=== PATIENT | male | born 1950 | race Caucasian/White ===

== ENCOUNTER 2018-02-15 10:07 | Emergency (ER) | payer OTHER ==
[2018-02-15] MEDS ORDERED: Sodium Chloride 0.9% 10 ML Syringe FLUSH PRN (10:17)
[2018-02-15] MEDS ORDERED: STERILE IV ONE (10:30)
[2018-02-15] MEDS ORDERED: WATER FOR INJECTION IV ONE (10:30)
[2018-02-15] MEDS ORDERED: ALTEPLASE IV ONE (10:30)
--- NOTE | 2018-02-15 10:31 | EDM.PDOC ---
ED HPI GENERAL MEDICAL PROBLEM - General Chief Complaint: Neuro Symptoms/Deficits Stated Complaint: STROKE Time Seen by Provider: 02/15/18 10:16 Source of Information: Reports: Patient, Family History Limitations: Reports: No Limitations - History of Present Illness INITIAL COMMENTS - FREE TEXT/NARRATIVE: The patient presents with slurred speech and balance issues. His last time known well was 9am. He has no headache, chest pain, shortness of breath, abdominal pain, nausea or vomiting. He does have slurred speech and he is off balance when he walks. He has some mild weakness to his face and left side. He has no history of stroke or CVA. He has no recent surgeries. He has a history of hypertension, COPD, seizures, right foot drop from an injury in [place], and neck surgery. He says his seizures started about 7 to 8 years ago. He is unsure of the cause. He will get a generalized tonic clonic seizure and they are under control. Onset: Sudden Duration: Hour(s): (9am) Severity: Severe Improves with: Reports: None Worsens with: Reports: None Context: Reports: Activity (He was at home) - Related Data Allergies Allergy/AdvReac Type Severity Reaction Status Date / Time No Known Allergies Allergy Verified 02/15/18 10:21 ED ROS GENERAL - Review of Systems Review Of Systems: See Below Constitutional: Reports: No Symptoms HEENT: Reports: No Symptoms Respiratory: Reports: No Symptoms Cardiovascular: Reports: No Symptoms Endocrine: Reports: No Symptoms GI/Abdominal: Reports: No Symptoms : Reports: No Symptoms Musculoskeletal: Reports: No Symptoms Skin: Reports: No Symptoms Neurological: Reports: Dizziness, Weakness, Gait Disturbance ED EXAM, NEURO - Physical Exam Exam: See Below Exam Limited By: No Limitations General Appearance: Alert, No Apparent Distress Ears: Normal External Exam Nose: Normal Inspection Head Exam: Atraumatic, Normocephalic Neck: Normal Inspection Respiratory/Chest: No Respiratory Distress, Lungs Clear, Normal Breath Sounds Cardiovascular: Regular Rate, Rhythm, No Edema, No Murmur GI/Abdominal: Soft, Non-Tender, No Organomegaly, No Mass Neurological: Alert, Oriented x 3, Other (Slurred speech, mild abnormal finger to nose on the left, mild facial, arm and leg weakness on the left.) EKG INTERPRETATION EKG Date: 02/15/18 Time: 10:28 Rhythm: NSR Rate (Beats/Min): 74 [place]: Normal P-Wave: Present QRS: Normal ST-T: Normal QT: Normal Course - Vital Signs Last Recorded V/S: Last Vital Signs Temp 97.9 F 02/15/18 10:18 Pulse 79 02/15/18 10:18 Resp 15 02/15/18 10:18 BP 128/69 02/15/18 10:18 Pulse Ox 92 L 02/15/18 10:18 - Orders/Labs/Meds Orders: Active Orders 24 hr Category Date Time Status Cardiac Monitoring [RC] . DIRECTED Care 02/15/18 10:17 Active EKG Documentation Completion [RC] STAT Care 02/15/18 10:18 Active Peripheral IV Care [RC] . DIRECTED Care 02/15/18 10:18 Active Head wo Cont [CT] Routine Exams 02/15/18 Taken COMPREHENSIVE METABOLIC PN,CMP [CHEM] Stat Lab 02/15/18 10:25 Received INR,PT,PROTHROMBIN TIME [COAG] Stat Lab 02/15/18 10:25 Received PTT,PARTIAL THROMBOPLSTIN TIME [COAG] Stat Lab 02/15/18 10:25 Received TROPONIN I [CHEM] Stat Lab 02/15/18 10:25 Received Sodium Chloride 0.9% [Saline Flush] Med 02/15/18 10:17 Active 10 ml FLUSH ASDIRECTED PRN Peripheral IV Insertion Adult [OM.PC] Stat Oth 02/15/18 10:17 Ordered Medication Orders Sodium Chloride (Saline Flush) 10 ml FLUSH ASDIRECTED PRN PRN Reason: Keep Vein Open Last Admin: 02/15/18 10:28 Dose: 10 ml Labs: Laboratory Tests 02/15/18 Range/Units 10:25 WBC 7.45 (4.23-9.07) K/mm3 RBC 4.05 L (4.63-6.08) M/mm3 Hgb 12.9 L (13.7-17.5) gm/L Hct 38.2 L (40.1-51.0) % MCV 94.3 H (79.0-92.2) fl MCH 31.9 (25.7-32.2) pg MCHC 33.8 (32.2-35.5) g/dl RDW Std Deviation 42.6 (35.1-43.9) fL Plt Count 191 (163-337) K/mm3 MPV 10.1 (9.4-12.3) fl Neut % (Auto) 60.5 (34.0-67.9) % Lymph % (Auto) 25.0 (21.8-53.1) % [place] % (Auto) 9.3 (5.3-12.2) % Eos % (Auto) 3.9 (0.8-7.0) Baso % (Auto) 0.8 (0.1-1.2) % Neut # (Auto) 4.51 (1.78-5.38) K/mm3 Lymph # (Auto) 1.86 (1.32-3.57) K/mm3 [place] # (Auto) 0.69 (0.30-0.82) K/mm3 Eos # (Auto) 0.29 (0.04-0.54) K/mm3 Baso # (Auto) 0.06 (0.01-0.08) K/mm3 Meds: Medications Generic Name Dose Route Start Last Admin Trade Name Freq PRN Reason Stop Dose Admin Sodium Chloride 10 ml 02/15/18 10:17 02/15/18 10:28 Saline Flush FLUSH 10 ml ASDIRECTED PRN Administration Keep Vein Open - Re-Assessments/Exams Free Text/Narrative Re-Assessment/Exam: 02/15/18 10:48 A stroke alert was called and the patient was last time known well at 9am. I ordered a CT of his head, EKG, and labs. His blood sugar was 124. The CT shows no acute intracranial problems. He had no contraindications for TPA. I informed the patient and his brother that he was having a blockage kind of stroke and I will be giving TPA. I ordered TPA a bolus was given and a drip. His EKG shows NSR with no acute changes. I talked to [facility] in [place] and talked with the neurologist munitions worker Dr Gerard and he accepted the patient. Departure - Departure Time of Disposition: 10:55 Disposition: DC/Tfer to Acute Hospital 02 Condition: Serious Clinical Impression: Cerebrovascular accident (CVA) Qualifiers: CVA mechanism: unspecified Qualified Code(s): I63.9 - Cerebral infarction, unspecified - Discharge Information Forms: ED Department Discharge - My Orders Last 24 Hours: My Active Orders 02/15/18 Head wo Cont [CT] Routine 02/15/18 10:17 Cardiac Monitoring [RC] . DIRECTED Sodium Chloride 0.9% [Saline Flush] 10 ml FLUSH ASDIRECTED PRN Peripheral IV Insertion Adult [OM.PC] Stat 02/15/18 10:18 EKG Documentation Completion [RC] STAT Peripheral IV Care [RC] . DIRECTED 02/15/18 10:25 COMPREHENSIVE METABOLIC PN,CMP [CHEM] Stat INR,PT,PROTHROMBIN TIME [COAG] Stat PTT,PARTIAL THROMBOPLSTIN TIME [COAG] Stat TROPONIN I [CHEM] Stat - Assessment/Plan Last 24 Hours: My Active Orders 02/15/18 Head wo Cont [CT] Routine 02/15/18 10:17 Cardiac Monitoring [RC] . DIRECTED Sodium Chloride 0.9% [Saline Flush] 10 ml FLUSH ASDIRECTED PRN Peripheral IV Insertion Adult [OM.PC] Stat 02/15/18 10:18 EKG Documentation Completion [RC] STAT Peripheral IV Care [RC] . DIRECTED 02/15/18 10:25 COMPREHENSIVE METABOLIC PN,CMP [CHEM] Stat INR,PT,PROTHROMBIN TIME [COAG] Stat PTT,PARTIAL THROMBOPLSTIN TIME [COAG] Stat TROPONIN I [CHEM] Stat
--- NOTE | 2018-02-15 12:21 | CT ---
Head CT Technique: Multiple axial sections through the brain were obtained. Intravenous contrast was not utilized. Comparison: No previous intracranial imaging. Findings: Ventricles along with basal cisterns and sulci over the convexities are within normal limits for the patient's age. No abnormal parenchymal densities are seen. No evidence of intracranial hemorrhage. No midline shift or mass effect is seen. Atherosclerotic calcification is seen within the left vertebral vessel. Mild areas of mucosal thickening are seen within the frontal , ethmoid and left maxillary sinus. No acute calvarial abnormality is seen. Impression: 1. Paranasal sinus disease which is likely chronic. 2. No acute intracranial abnormality is identified on noncontrast head CT exam. Diagnostic code #2 MTDD
== END 2018-02-15 10:52 ==
LOC: JD.ED 10:07 → MERGE 10:07 → JD.ED 10:52
DX: I63.9 Cerebral infarction, unspecified (principal); I10 Essential (primary) hypertension
CPT/HCPCS: 36415; 70450; 80053; 84484; 85025; 85610; 85730; 93005; 96365; 96376; 99285; J2997; J7050

== ENCOUNTER 2019-12-21 19:51 | Emergency (ER) | payer OTHER, MEDICARE ==
--- NOTE | 2019-12-21 21:38 | EDM.PDOCBH ---
ED HPI GENERAL MEDICAL PROBLEM - General Chief Complaint: Behavioral/Psych Stated Complaint: POSSIBLE HALLUCINATIONS Time Seen by Provider: 12/21/19 20:57 Source of Information: Reports: Patient History Limitations: Reports: No Limitations - History of Present Illness INITIAL COMMENTS - FREE TEXT/NARRATIVE: Mr. Galindo is a very pleasant 69-year-old man with a past medical history significant for hypertension, dyslipidemia, PFT-proven COPD, and a seizure disorder that developed about 10 years ago for reasons unclear, treated with Keppra that he states he is compliant with. He was seen in this ED on 2017 with what was thought at the time to be a stroke, but his Neurologist feels in retrospect was likely a seizure. His last known seizure was in December 2018. He also has a history of depression, bipolar affective disorder, and PTSD , treated with Paxil and Abilify. He now presents to the ED stating that he has had had difficulty sleeping since he was in the [place] in 1971, but that it has been worse over the past 2 weeks, and that he has not slept at all for the past 5 nights. His legs have been restless and jumpy. He states that he started seeing cats in his apartment , even though he does not actually have any cats, on or about this past 12/18/2019. Some of the cats are impossibly small, only a few inches in length, all the way up to large sized cats. Today he thought someone was at the door, and he let some people into his apartment. They then just stayed, refusing to leave, therefore he called the police, who did not find anyone in his apartment. They left, he saw the people again, therefore he called the police a second time, with the same result. He states that he talks to the people, but they do not talk back to him. He has not heard any voices in his head. The patient states that he is not particularly depressed, and is neither suicidal nor homicidal. The patient states that he has longstanding sinus pressure, and has nauseated recently. He has had watery diarrhea for months. He has had right-sided abdominal pain for about 1 month, and reports a 10 pound unintentional weight loss over the past month. He has joint aches, particularly with inclement weather, and a headache. He reports a cough for months, but only productive of green sputum today. He denies recent fever, chills, dyspnea, nausea, constipation, urinary symptoms, bloody bowel movements or black bowel movements , or rashes. The patient states that he ordinarily smokes marijuana 2-3 times a week, but that he has been smoking it much more often than this week, and the hope that it would help him to sleep. He has not discussed his cough, abdominal pain, or weight loss with either of his PCPs. The patient's PCP is Dr. Rojelio Buck, however, he also sees a PCP at the [place]. His Psychiatrist is through the [place]. He received an influenza vaccine this season. - Related Data Allergies Allergy/AdvReac Type Severity Reaction Status Date / Time prazosin Allergy Hallucinati Verified 12/21/19 20:06 ons sleeping pill? Allergy Cannot Uncoded 12/21/19 20:07 Remember Home Meds: Home Meds ARIPiprazole [Abilify] 20 mg PO DAILY 12/21/19 [History] Albuterol Inhaler. 1 puff INH Q6H PRN 12/21/19 [History] Budesonide/Formoterol Fumarate [Budesonide-Formoterol 80-4.5] 2 puff INH Q12H [History] Cyclobenzaprine [Flexeril] 10 mg PO TID PRN 12/21/19 [History] Lisinopril/Hydrochlorothiazide [Lisinopril-Hctz 20-25 mg Tab] 1 tab PO DAILY [History] PARoxetine HCl [Paroxetine HCl] 60 mg PO DAILY 12/21/19 [History] levETIRAcetam [Keppra] 500 mg PO BID 12/21/19 [History] OLANZapine [ZyPREXA] 1 tab PO BEDTIME #10 tab 12/22/19 [Rx] Past Medical History HEENT History: Reports: Impaired Vision Cardiovascular History: Reports: High Cholesterol, Hypertension Respiratory History: Reports: COPD (PFT-proven) Neurological History: Reports: Seizure, Other (See Below) (Right footdrop following injury in [facility]) Psychiatric History: Reports: Bipolar, Depression, PTSD - Past Surgical History HEENT Surgical History: Reports: Oral Surgery (wisdom teeth extraction) Neurological Surgical History: Reports: Other (See Below) (Right leg debridement and nerve graft) Musculoskeletal Surgical History: Reports: Other (See Below) Oncologic Surgical History: Reports: Other (See Below) (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) Social & Family History - Tobacco Use Smoking Status *Q: Current Every Day Smoker Years of Tobacco use: 50 Packs/Tins Daily: 0.5 Packs/Tins Daily Comment: Down from 1.5 ppd - Caffeine Use Caffeine Use: Reports: Coffee - Alcohol Use Alcohol Use History: No - Recreational Drug Use Recreational Drug Use: Yes Drug Use in Last 12 Months: Yes Recreational Drug Type: Reports: Cocaine (last snorted around 2004), Heroin ( last injected around 1984), Marijuana/Hashish (smokes regularly), Methamphetamine (last injected around 2012) Recreational Drug Use Comment: Patient attends [facility] - Living Situation & Occupation Living situation: Reports: Single, Alone Occupation: Retired ED ROS GENERAL - Review of Systems Review Of Systems: Comprehensive ROS is negative, except as noted in HPI. ED EXAM, BEHAVIORAL HEALTH - Physical Exam Exam: See Below Exam Limited By: No Limitations General Appearance: Alert, WD/WN, No Apparent Distress Eye Exam: Bilateral Eye: EOMI, Normal Inspection, PERRL Ears: Normal External Exam, Normal Canal, Hearing Grossly Normal, Normal TMs Nose: Normal Inspection, Normal Mucosa, No Blood Throat/Mouth: Normal Inspection, Normal Lips, Normal Gums, Normal Oropharynx, Normal Voice, No Airway Compromise, Other (Upper dentures) Head: Atraumatic, Normocephalic Neck: Normal Inspection, Supple, Non-Tender, Full Range of Motion. No: Lymphadenopathy (L), Lymphadenopathy (R) Respiratory/Chest: No Respiratory Distress, Lungs Clear, Normal Breath Sounds, No Accessory Muscle Use. No: Decreased Breath Sounds, Crackles, Rhonchi, Wheezing, Stridor, Prolonged Expiration Cardiovascular: Normal Peripheral Pulses, Regular Rate, Rhythm, No Edema, No Gallop, No JVD, No Murmur, No Rub GI/Abdominal: Normal Bowel Sounds, Soft, Non-Tender, No Organomegaly, No Distention, No Abnormal Bruit, No Mass (Male) Exam: Deferred Rectal (Males) Exam: Deferred Back Exam: Normal Inspection, Full Range of Motion, NT Extremities: Normal Inspection, Normal Range of Motion, No Pedal Edema, Normal Capillary Refill Neurological: Alert, CN II-XII Intact (chronic decreased sensation to right face following benign tumor excision), Normal Cognition, Normal Gait (walking in exam room), No Motor/Sensory Deficits (good right plantarflexion, but chronic inability to dorsiflex right foot following injury in [facility]), Oriented x 3 Psychiatric: Normal Affect Skin Exam: Warm, Dry, Intact, Normal color, No rash EKG INTERPRETATION EKG Date: 12/21/19 Time: 21:38 Rhythm: NSR Rate (Beats/Min): 74 [place]: Normal P-Wave: Enlarged (LAE) QRS: Other (Late transition) ST-T: Depressed (< 1/[address] depression in V5, V6, and inferior leads, but no T wave inversions) QT: Normal Comparison: No Change (02/15/2018) COURSE, BEHAVIORAL HEALTH COMP - Course Vital Signs: Last Vital Signs Temp 37.3 C 12/21/19 20:03 Pulse 86 12/21/19 20:03 Resp 18 12/21/19 20:03 BP 164/107 H 12/21/19 20:03 Pulse Ox 95 12/21/19 20:03 Orders, Labs, Meds: Active Orders 24 hr Category Date Time Status EKG Documentation Completion [RC] STAT Care 12/21/19 21:28 Active Chest 2V [CR] Stat Exams 12/21/19 21:31 Taken Head wo Cont [CT] Stat Exams 12/21/19 21:29 Taken Laboratory Tests 12/21/19 12/21/19 12/21/19 Range/Units 21:47 21:47 21:47 WBC 11.08 H (4.23-9.07) K/mm3 RBC 4.05 L (4.63-6.08) M/mm3 Hgb 12.7 L (13.7-17.5) gm/dl Hct 37.4 L (40.1-51.0) % MCV 92.3 H (79.0-92.2) fl MCH 31.4 (25.7-32.2) pg MCHC 34.0 (32.2-35.5) g/dl RDW Std Deviation 40.8 (35.1-43.9) fL Plt Count 266 D (163-337) K/mm3 MPV 9.5 (9.4-12.3) fl Neutrophils % (Manual) 57 (40-60) % Band Neutrophils % 0 (0-10) % Lymphocytes % (Manual) 32 (20-40) % Atypical Lymphs % 0 % Monocytes % (Manual) 7 (2-10) % Eosinophils % (Manual) 2 (0.8-7.0) % Basophils % (Manual) 2 H (0.2-1.2) Platelet Estimate Adequate RBC Morph Comment Normal Sodium 134 L (136-145) mEq/L Potassium 3.2 L (3.5-5.1) mEq/L Chloride 95 L (98-107) mEq/L Carbon Dioxide 28 (21-32) mEq/L Anion Gap 14.2 (5-15) BUN 15 (7-18) mg/dL Creatinine 0.9 (0.7-1.3) mg/dL Est Cr Clr Drug Dosing 73.44 mL/min Estimated GFR (MDRD) > 60 (>60) mL/min BUN/Creatinine Ratio 16.7 (14-18) Glucose 105 (80-115) mg/dL Calcium 9.4 (8.5-10.1) mg/dL Magnesium 2.0 (1.8-2.4) mg/dl Total Bilirubin 0.5 (0.2-1.0) mg/dL AST 19 (15-37) U/L ALT 39 (16-63) U/L Alkaline Phosphatase 92 (46-116) U/L Total Protein 8.2 (6.4-8.2) g/dl Albumin 4.3 (3.4-5.0) g/dl Globulin 3.9 gm/dL Albumin/Globulin Ratio 1.1 (1-2) TSH 3rd Generation 3.056 (0.358-3.74) uIU/mL Salicylates 4.4 (2.8-20) mg/dL Urine Opiates Screen (UXDWKZ=644) Ur Buprenorphine Scrn (CUTOFF=10) Ur Oxycodone Screen (TYV9PE=416) Urine Methadone Screen (LET5VL=791) Ur Propoxyphene Screen (NIZOSW=344) Acetaminophen 0 L (10-30) ug/mL Ur Barbiturates Screen (PHHUJV=394) Ur Tricyclics Screen (JRAWPD=545) Ur Phencyclidine Scrn (CUTOFF=25) Ur Amphetamine Screen (VCHLBC=144) U Methamphetamines Scrn (KRXRBH=837) U Benzodiazepines Scrn (JSTFOC=534) U Cocaine Metab Screen (ZNQRLO=742) U Marijuana (THC) Screen (CUTOFF=50) Ethyl Alcohol 0.00 (0.00) gm% 12/21/19 Range/Units 21:54 WBC (4.23-9.07) K/mm3 RBC (4.63-6.08) M/mm3 Hgb (13.7-17.5) gm/dl Hct (40.1-51.0) % MCV (79.0-92.2) fl MCH (25.7-32.2) pg MCHC (32.2-35.5) g/dl RDW Std Deviation (35.1-43.9) fL Plt Count (163-337) K/mm3 MPV (9.4-12.3) fl Neutrophils % (Manual) (40-60) % Band Neutrophils % (0-10) % Lymphocytes % (Manual) (20-40) % Atypical Lymphs % % Monocytes % (Manual) (2-10) % Eosinophils % (Manual) (0.8-7.0) % Basophils % (Manual) (0.2-1.2) Platelet Estimate RBC Morph Comment Sodium (136-145) mEq/L Potassium (3.5-5.1) mEq/L Chloride (98-107) mEq/L Carbon Dioxide (21-32) mEq/L Anion Gap (5-15) BUN (7-18) mg/dL Creatinine (0.7-1.3) mg/dL Est Cr Clr Drug Dosing mL/min Estimated GFR (MDRD) (>60) mL/min BUN/Creatinine Ratio (14-18) Glucose (80-115) mg/dL Calcium (8.5-10.1) mg/dL Magnesium (1.8-2.4) mg/dl Total Bilirubin (0.2-1.0) mg/dL AST (15-37) U/L ALT (16-63) U/L Alkaline Phosphatase (46-116) U/L Total Protein (6.4-8.2) g/dl Albumin (3.4-5.0) g/dl Globulin gm/dL Albumin/Globulin Ratio (1-2) TSH 3rd Generation (0.358-3.74) uIU/mL Salicylates (2.8-20) mg/dL Urine Opiates Screen Presumptive positive H (JQHMBT=596) Ur Buprenorphine Scrn Negative (CUTOFF=10) Ur Oxycodone Screen Negative (OMN4HE=820) Urine Methadone Screen Negative (FXI3GU=528) Ur Propoxyphene Screen Negative (MSCXCX=155) Acetaminophen (10-30) ug/mL Ur Barbiturates Screen Negative (TTOGWD=706) Ur Tricyclics Screen Negative (OXCMCH=312) Ur Phencyclidine Scrn Negative (CUTOFF=25) Ur Amphetamine Screen Negative (MMTDKY=727) U Methamphetamines Scrn Negative (XVUMDY=758) U Benzodiazepines Scrn Negative (GKFDNM=461) U Cocaine Metab Screen Negative (CXRNLI=957) U Marijuana (THC) Screen Presumptive positive H (CUTOFF=50) Ethyl Alcohol (0.00) gm% Medications Discontinued Medications Generic Name Dose Route Start Last Admin Trade Name Freq PRN Reason Stop Dose Admin Potassium Chloride 40 meq 12/21/19 23:14 12/21/19 23:22 Klor-Con M20 PO 12/21/19 23:15 40 meq ONETIME ONE Administration Medical Clearance: 12/21/19 21:35 Inferior visual hallucinations, without auditory or tactile hallucinations. I suspect that his hallucinations are brought on by a lack of sleep, but why he is not sleeping is not clear. As per the HPI, the patient reports having difficulty sleeping ever since 1971. I doubt that any of the patient's current medications are responsible for his hallucinations; cyclobenzaprine and paroxetine each carry less than 1% incidence of hallucinations, while budesonide with formoterol, arpiprazole, and possibly levetiracetam could theoretically cause hallucinations, but their incidence is not defined. Neither aspirin, albuterol, nor lisinopril/hydrochlorothiazide have been associated with hallucinations. I have ordered a work-up to evaluate for any significant electrolyte abnormalities, drug or alcohol use, hypo-or hyperthyroidism, or dysrhythmias. I have also ordered a CT scan of his head, which was last normal on 02/15/2018. Additionally, I have ordered a chest x-ray, as the patient reports 1 month of cough, now productive of green sputum. I am concerned about the patient's report of a 10 pound weight loss and right-sided abdominal pain, however, his abdominal exam is benign on examination, therefore I don't believe we can justify a CT of his abdomen and pelvis from an emergency standpoint. Further outpatient evaluation in that regard, however, is indicated. 12/21/19 22:20 Two-view chest radiograph reviewed. The cardiac silhouette is within normal limits. No pulmonary vascular congestion. No pleural effusions. No focal infiltrate. No pneumothorax. Old/well-healed right 6th and 7th, and possibley 8th rib fractures. Formal read per the Radiologist pending. 12/21/19 22:32 CT of the head without contrast as read by vRaden as "No acute abnormality." 12/21/19 23:14 The patient CBC is remarkable for a WBC count mildly elevated at 11.08, but with 0% bandemia. His H/H is slightly depressed at 12.7/37.4, with the remainder of his CBC being unremarkable. His CMP is remarkable for a sodium mildly depressed at 132, and a potassium depressed at 3.2. The remainder of his CMP is unremarkable. His magnesium level is within normal limits at 2.0. His TSH is within normal limits at 3.056. His acetaminophen level is 0. His salicylate level is within normal limits at 4.4. His EtOH level is 0.00. His urine drug screen is positive for both opiates and marijuana, and is otherwise negative. Based on the above, I have ordered 40 mEq of oral KCl. 12/22/19 01:[address] Melita Brandt, Psychiatrist at [facility], at 01: 25. She noted that the patient's hallucinations could be due to substance abuse or sleep deprivation, however, she also wondered whether it could be insurance follow up representative of Lewy body or some other type of dementia. She feels the patient would be better served with a medical/neurologic work-up than a psychiatric admission. She recommended that I prescribe Zyprexa 5 to 10 mg po QHS, to not only help the patient to sleep, but it also acts as an antipsychotic. The patient then needs outpatient follow-up with either a Neurologist or a Psychiatrist. 12/22/19 01:57 The above plan was discussed with the patient. He stated that he had been on [place] recently but is no longer on it. He is agreeable with the plan for Zyprexa and follow-up. He does not recall the name of his Neurologist at [facility], but he can follow-up with Dr. Buck, who can refer him. Departure - Departure Time of Disposition: 01:58 Disposition: Home, Self-Care 01 Condition: Good Clinical Impression: Visual hallucinations, Hypokalemia - Discharge Information *PRESCRIPTION DRUG MONITORING PROGRAM REVIEWED*: Not Applicable *COPY OF PRESCRIPTION DRUG MONITORING REPORT IN PATIENT ABDIAS: Not Applicable Referrals: Rojelio Buck MD [Primary Care Provider] - Forms: ED Department Discharge Additional Instructions: You were seen in the emergency room after seeing cats and people that were not really present. Work-up in the ER included blood work, a urine drug screen, a chest x-ray, a CT scan of your head, and an ECG. Your work-up found your potassium to be low. You were given replacement potassium in the ER. Your case was discussed with a Psychiatrist at [facility]. The cause of your hallucinations is not clear, but could be due to substance abuse, your lack of sleep, or a neurologic condition. A prescription for Zyprexa has been sent to the [facility] located just south and across the [address] from [facility]. The pharmacy will be open between noon and 4:00 PM today, 12/22/2019. Take 1 tablet of Zyprexa at bedtime, as prescribed. Follow-up with your PCP, Dr. Rojelio Buck, at the next available appointment, to arrange for an evaluation by a Neurologist. If any other problems, please do not hesitate to return to the ER. Sepsis Event Note - Evaluation Sepsis Screening Result: No Definite Risk - Focused Exam Vital Signs: Vital Signs Temp Pulse Resp BP Pulse Ox 12/21/19 20:03 37.3 C 86 18 164/107 H 95 Date Exam was Performed: 12/22/19 Time Exam was Performed: 01:33 - My Orders Last 24 Hours: My Active Orders 12/21/19 21:28 EKG Documentation Completion [RC] STAT 12/21/19 21:29 Head wo Cont [CT] Stat 12/21/19 21:31 Chest 2V [CR] Stat - Assessment/Plan Last 24 Hours: My Active Orders 12/21/19 21:28 EKG Documentation Completion [RC] STAT 12/21/19 21:29 Head wo Cont [CT] Stat 12/21/19 21:31 Chest 2V [CR] Stat
[2019-12-21 22:31] LABS: ACETAMINOPHEN 0 ug/mL (10-30)
[2019-12-21] MEDS ORDERED: Potassium Chloride 20 MEQ Tab.ER PO ONE (23:14)
--- NOTE | 2019-12-22 15:24 | CR ---
Chest: 2 views of the chest were obtained. Comparison: No prior chest imaging is available. Heart size is normal. Tortuous thoracic aorta is seen. Old healed right-sided rib fractures are noted. Bony structures show nothing acute. Lungs show no acute parenchymal change. Impression: 1. Nothing acute is appreciated on 2 view chest x-ray. Diagnostic code #2 This report was dictated in [place] Standard Time
--- NOTE | 2019-12-22 18:25 | CT ---
Head CT Technique: Multiple axial sections through the brain were obtained. Intravenous contrast was not utilized. Comparison: No prior intracranial imaging is available. Findings: Ventricles along with basal cisterns and sulci over the convexities are within normal limits for the patient's age. No abnormal parenchymal densities are seen. No evidence of intracranial hemorrhage. No midline shift or mass-effect is seen. Bone window settings were reviewed. No acute calvarial abnormality is appreciated. Visualized mastoid sinuses are clear. There is moderate mucosal thickening seen within the left ethmoid sinus as well as opacification of the left upper maxillary sinus. Mild atherosclerotic calcification is seen within the carotid siphon and within the vertebral vessels. Impression: 1. Sinus findings as noted above which are most likely chronic. 2. No acute intracranial abnormality is identified. Diagnostic code #3 This report was dictated in [place] Standard Time I agree with preliminary report from [facility], finalized on 12/21/19, 11:29 PM Central Time
== END 2019-12-22 02:28 | disposition home or self-care (01) ==
LOC: JD.ED 19:51
DX: R44.1 Visual hallucinations (principal); E87.6 Hypokalemia; I10 Essential (primary) hypertension; F17.210 Nicotine dependence, cigarettes, uncomplicated; Z79.899 Other long term (current) drug therapy; Z88.8 Allergy status to other drugs, medicaments and biological substances
CPT/HCPCS: 36415; 70450; 71046; 80053; 80306; 80307; 83735; 84443; 85007; 85027; 93005; 99285; A9270; 93010; 99284

== ENCOUNTER 2021-11-12 10:43 | Emergency (ER) | payer MEDICARE, OTHER ==
[2021-11-12] MEDS ORDERED: Acetaminophen 325 MG Tab PO ONE (11:51)
== END 2021-11-12 12:00 | disposition home or self-care (01) ==
LOC: JD.ED 10:43
DX: S29.9XXA Unspecified injury of thorax, initial encounter (principal); I10 Essential (primary) hypertension; J44.9 Chronic obstructive pulmonary disease, unspecified; R56.9 Unspecified convulsions; Z72.0 Tobacco use; Z88.8 Allergy status to other drugs, medicaments and biological substances; Z79.899 Other long term (current) drug therapy; W00.0XXA Fall on same level due to ice and snow, initial encounter; Y93.01 Activity, walking, marching and hiking
CPT/HCPCS: 71100-26-RT; 71100-RT; 99283-25

== ENCOUNTER 2021-11-15 12:34 | Inpatient (IN) | payer MEDICARE, OTHER ==
[2021-11-15] MEDS ORDERED: Sodium Chloride 0.9% 10 ML Syringe FLUSH PRN (12:42)
[2021-11-15] MEDS ORDERED: Furosemide 40 MG/4 ML VIAL IVPUSH ONE (12:56)
[2021-11-15] MEDS ORDERED: Albuterol/Ipratropium 3.0-0.5 MG/3 ML Neb Soln NEB ONE (12:57)
[2021-11-15] MEDS ORDERED: methylPREDNISolone Sodium Succinate 125 MG/2 ML SDV IVPUSH ONE (12:58)
[2021-11-15] MEDS ORDERED: Naloxone 2 MG/2 ML Syringe IVPUSH ONE ×2 (13:28→19:23)
[2021-11-15] MEDS ORDERED: Naloxone 2 MG/2 ML Syringe ONE ×3 (13:28→19:30)
[2021-11-15] MEDS ORDERED: Lactated Ringers 1,000 ML IV ONE ×3 (15:28→18:04)
[2021-11-15] MEDS ORDERED: cefTRIAXone 2 GM in Sodium Chloride 0.9% 100 ML IV ONE (15:33)
[2021-11-15] MEDS ORDERED: Piperacillin/Tazobactam 4.5 GM in Sodium Chloride 0.9% 100 ML IV ONE (17:04)
[2021-11-15] MEDS ORDERED: Piperacillin/Tazobactam 4.5 GM in Sodium Chloride 0.9% 100 ML IV SCH (17:57)
[2021-11-15] MEDS ORDERED: Heparin Sodium 5,000 Units/ML Vial IVPUSH ONE ×3 (18:34→19:00)
[2021-11-15] MEDS ORDERED: Ondansetron 4 MG/2 ML SDV IV PRN (18:42)
[2021-11-15] MEDS ORDERED: Acetaminophen 325 MG Tab PO PRN (18:42)
[2021-11-15] MEDS ORDERED: Heparin Sodium/D5W 25,000 UNITS/500 ML BAG IV SCH (18:45)
[2021-11-15] MEDS: methylPREDNISolone Sodium Succinate 40 MG/1 ML SDV IVPUSH SCH (20:12)
[2021-11-15] MEDS: Heparin Sodium/D5W 25,000 UNITS/500 ML BAG IV SCH (20:18)
[2021-11-15] MEDS: Potassium Chloride 10 MEQ in Premix Bag 1 BAG IV SCH ×4 (20:35→23:57)
[2021-11-15] MEDS ORDERED: FLU Vacc QS2021(65UP)/MF59C/PF 60 MCG/0.5 ML Syringe IM ONE (22:00)
[2021-11-16] MEDS: Dextrose 5%-Lactated Ringers 1,000 ML IV SCH ×3 (00:03→19:00)
[2021-11-16] MEDS: Piperacillin/Tazobactam 4.5 GM in Sodium Chloride 0.9% 100 ML IV SCH ×3 (00:40→16:21)
[2021-11-16] MEDS: methylPREDNISolone Sodium Succinate 40 MG/1 ML SDV IVPUSH SCH ×4 (00:40→19:00)
[2021-11-16] MEDS ORDERED: Hyaluronidase, Human Recombinant 150 Units/1 ML SDV INFILT ONE (01:30)
[2021-11-16] MEDS ORDERED: Potassium Chloride 20 MEQ Tab.ER PO ONE ×2 (09:00→17:00)
[2021-11-16] MEDS: Potassium Chloride 10 MEQ in Premix Bag 1 BAG IV SCH ×4 (09:10→12:45)
[2021-11-16] MEDS: Linezolid 600 MG in Premix Bag 1 BAG IV SCH ×2 (09:14→20:29)
[2021-11-16] MEDS ORDERED: Albuterol 6.7 GM Inhaler INH PRN (10:33)
[2021-11-16] MEDS: Albuterol/Ipratropium 3.0-0.5 MG/3 ML Neb Soln NEB PRN ×2 (11:30→16:29)
[2021-11-16] MEDS: Nicotine 21 MG/24 Hr Patch TRDERM SCH (11:36)
[2021-11-16] MEDS ORDERED: Naloxone 0.4 MG/ML SDV ONE (12:40)
[2021-11-16] MEDS: Heparin Sodium/D5W 25,000 UNITS/500 ML BAG IV SCH (20:23)
[2021-11-17] MEDS: Piperacillin/Tazobactam 4.5 GM in Sodium Chloride 0.9% 100 ML IV SCH ×2 (00:18→10:14)
[2021-11-17] MEDS: methylPREDNISolone Sodium Succinate 40 MG/1 ML SDV IVPUSH SCH ×4 (00:18→20:58)
[2021-11-17] MEDS: Dextrose 5%-Lactated Ringers 1,000 ML IV SCH (05:12)
[2021-11-17] MEDS: hydrALAZINE 20 MG/ML SDV IVPUSH PRN ×2 (06:18→23:35)
[2021-11-17] MEDS: Insulin Lispro 100 Unit/ML 3 ML KwikPen SUBCUT SCH ×4 (06:25→21:03)
[2021-11-17] MEDS: Linezolid 600 MG in Premix Bag 1 BAG IV SCH (08:17)
[2021-11-17] MEDS ORDERED: Sodium Chloride 0.9% 10 ML Syringe FLUSH PRN (08:22)
[2021-11-17] MEDS ORDERED: Iopamidol 755 Mg/ML 100 ML Bottle IVPUSH ONE (08:22)
[2021-11-17] MEDS ORDERED: Sodium Chloride 0.9% 100 ML IV SCH (08:30)
[2021-11-17] MEDS: Biotin/Folic Acid/Vitamin C/Vitamin B Complex Tab PO SCH (08:35)
[2021-11-17] MEDS: Nicotine 21 MG/24 Hr Patch TRDERM SCH (08:35)
[2021-11-17] MEDS: Potassium Chloride 10 MEQ in Premix Bag 1 BAG IV SCH ×4 (08:45→13:08)
[2021-11-17] MEDS ORDERED: Potassium Chloride 20 MEQ Tab.ER PO SCH (09:00)
[2021-11-17] MEDS ORDERED: Furosemide 20 MG/2 ML VIAL IVPUSH ONE (09:30)
[2021-11-17] MEDS: Formoterol/Mometasone 100-5 MCG 8.8 GM Inhaler IH SCH ×2 (09:43→20:07)
[2021-11-17] MEDS: Ampicillin/Sulbactam Na 3 GM in Sodium Chloride 0.9% 100 ML IV SCH ×3 (11:19→23:39)
[2021-11-17] MEDS ORDERED: Potassium Phosphates 30 MMOLE in Sodium Chloride 0.9% 500 ML IV ONE (14:00)
[2021-11-17] MEDS ORDERED: Furosemide 40 MG/4 ML VIAL IVPUSH ONE (16:00)
[2021-11-17] MEDS ORDERED: traZODone 50 MG Tab PO ONE (21:24)
[2021-11-18] MEDS: hydrALAZINE 20 MG/ML SDV IVPUSH PRN ×3 (05:11→22:24)
[2021-11-18] MEDS: Ampicillin/Sulbactam Na 3 GM in Sodium Chloride 0.9% 100 ML IV SCH ×4 (05:12→22:22)
[2021-11-18] MEDS: Insulin Lispro 100 Unit/ML 3 ML KwikPen SUBCUT SCH ×4 (07:23→21:00)
[2021-11-18] MEDS: Biotin/Folic Acid/Vitamin C/Vitamin B Complex Tab PO SCH (08:04)
[2021-11-18] MEDS: methylPREDNISolone Sodium Succinate 40 MG/1 ML SDV IVPUSH SCH ×2 (08:04→20:44)
[2021-11-18] MEDS: Formoterol/Mometasone 100-5 MCG 8.8 GM Inhaler IH SCH ×2 (08:14→21:05)
[2021-11-18] MEDS: Nicotine 21 MG/24 Hr Patch TRDERM SCH (08:17)
[2021-11-18] MEDS ORDERED: Furosemide 40 MG/4 ML VIAL IVPUSH ONE (09:09)
[2021-11-18] MEDS ORDERED: Sodium Chloride 0.45% with KCl 1,000 ML IV SCH (10:30)
[2021-11-18] MEDS ORDERED: Magnesium Oxide 400 MG Tab PO SCH (10:30)
[2021-11-18] MEDS ORDERED: Magnesium Sulfate/Water 2 GM in Premix Bag 1 BAG IV ONE (10:39)
[2021-11-18 10:56] LABS: HEMOGLOBIN A1C 6.4 %
[2021-11-18] MEDS: Enoxaparin 40 MG/0.4 ML Syringe SUBCUT SCH (11:06)
[2021-11-18] MEDS: Potassium Chloride 10 MEQ in Premix Bag 1 BAG IV SCH ×4 (11:09→14:42)
[2021-11-18] MEDS: Potassium Chloride 20 MEQ Tab.ER PO SCH ×2 (14:41→20:43)
[2021-11-18] MEDS: Lisinopril 20 MG Tab PO SCH (20:44)
[2021-11-19] MEDS ORDERED: Temazepam 30 MG Cap PO PRN (01:01)
[2021-11-19] MEDS: LORazepam 2 MG/ML SDV IVPUSH SCH ×18 (02:32→19:19)
[2021-11-19] MEDS: Ampicillin/Sulbactam Na 3 GM in Sodium Chloride 0.9% 100 ML IV SCH ×4 (04:41→22:38)
[2021-11-19] MEDS: Insulin Lispro 100 Unit/ML 3 ML KwikPen SUBCUT SCH ×4 (06:41→21:16)
[2021-11-19] MEDS: Biotin/Folic Acid/Vitamin C/Vitamin B Complex Tab PO SCH (08:42)
[2021-11-19] MEDS: Enoxaparin 40 MG/0.4 ML Syringe SUBCUT SCH (08:42)
[2021-11-19] MEDS: methylPREDNISolone Sodium Succinate 40 MG/1 ML SDV IVPUSH SCH ×2 (08:44→20:03)
[2021-11-19] MEDS: Nicotine 21 MG/24 Hr Patch TRDERM SCH (08:52)
[2021-11-19] MEDS: Formoterol/Mometasone 100-5 MCG 8.8 GM Inhaler IH SCH ×2 (09:04→20:34)
[2021-11-19] MEDS ORDERED: Potassium Phosphates 30 MMOLE in Sodium Chloride 0.9% 500 ML IV SCH (10:00)
[2021-11-19] MEDS ORDERED: Metoprolol Tartrate 5 MG/5 ML SDV IVPUSH PRN (12:24)
[2021-11-19] MEDS: Gabapentin 300 MG Cap PO SCH ×2 (13:43→20:02)
[2021-11-19] MEDS: levETIRAcetam 500 MG Tab PO SCH ×2 (13:44→20:01)
[2021-11-19] MEDS: ARIPiprazole 10 MG Tab PO SCH (13:44)
[2021-11-19] MEDS ORDERED: LORazepam 2 MG/ML SDV IVPUSH PRN (19:50)
[2021-11-19] MEDS: Lisinopril 20 MG Tab PO SCH (20:01)
[2021-11-19] MEDS: Temazepam 30 MG Cap PO SCH (20:01)
[2021-11-19] MEDS: Propranolol 40 MG Tab PO SCH (20:01)
[2021-11-19] MEDS: Mirtazapine 15 MG Tab PO SCH (20:02)
[2021-11-19] MEDS ORDERED: Potassium Chloride 20 MEQ Tab.ER PO ONE (21:00)
[2021-11-20] MEDS ORDERED: Loperamide 2 MG Cap PO ONE (03:41)
[2021-11-20] MEDS: Ampicillin/Sulbactam Na 3 GM in Sodium Chloride 0.9% 100 ML IV SCH ×4 (04:20→23:16)
[2021-11-20] MEDS: Insulin Lispro 100 Unit/ML 3 ML KwikPen SUBCUT SCH ×4 (06:25→21:26)
[2021-11-20] MEDS: ARIPiprazole 10 MG Tab PO SCH (08:29)
[2021-11-20] MEDS: Gabapentin 300 MG Cap PO SCH ×2 (08:29→20:03)
[2021-11-20] MEDS: Biotin/Folic Acid/Vitamin C/Vitamin B Complex Tab PO SCH (08:29)
[2021-11-20] MEDS: Enoxaparin 40 MG/0.4 ML Syringe SUBCUT SCH (08:29)
[2021-11-20] MEDS: levETIRAcetam 500 MG Tab PO SCH ×2 (08:29→20:02)
[2021-11-20] MEDS: Nicotine 21 MG/24 Hr Patch TRDERM SCH (08:30)
[2021-11-20] MEDS: methylPREDNISolone Sodium Succinate 40 MG/1 ML SDV IVPUSH SCH ×2 (08:30→20:04)
[2021-11-20] MEDS: Formoterol/Mometasone 100-5 MCG 8.8 GM Inhaler IH SCH ×2 (09:06→20:16)
[2021-11-20] MEDS: Albuterol/Ipratropium 3.0-0.5 MG/3 ML Neb Soln NEB PRN ×3 (09:07→23:32)
[2021-11-20] MEDS ORDERED: Potassium Phosphates 30 MMOLE in Sodium Chloride 0.9% 500 ML IV ONE (18:15)
[2021-11-20] MEDS: Loperamide 2 MG Cap PO PRN (20:03)
[2021-11-20] MEDS: Propranolol 40 MG Tab PO SCH (20:03)
[2021-11-20] MEDS: Mirtazapine 15 MG Tab PO SCH (20:03)
[2021-11-20] MEDS: Lisinopril 20 MG Tab PO SCH (20:03)
[2021-11-20] MEDS: Temazepam 30 MG Cap PO SCH (20:03)
[2021-11-21] MEDS ORDERED: Furosemide 20 MG/2 ML VIAL IVPUSH ONE (00:51)
[2021-11-21] MEDS ORDERED: Furosemide 20 MG/2 ML VIAL ONE (00:53)
[2021-11-21] MEDS: Ampicillin/Sulbactam Na 3 GM in Sodium Chloride 0.9% 100 ML IV SCH ×4 (04:28→23:06)
[2021-11-21] MEDS: Insulin Lispro 100 Unit/ML 3 ML KwikPen SUBCUT SCH ×4 (06:03→21:36)
[2021-11-21] MEDS: Enoxaparin 40 MG/0.4 ML Syringe SUBCUT SCH (08:04)
[2021-11-21] MEDS: ARIPiprazole 10 MG Tab PO SCH (08:04)
[2021-11-21] MEDS: Biotin/Folic Acid/Vitamin C/Vitamin B Complex Tab PO SCH (08:04)
[2021-11-21] MEDS: Nicotine 21 MG/24 Hr Patch TRDERM SCH (08:04)
[2021-11-21] MEDS: methylPREDNISolone Sodium Succinate 40 MG/1 ML SDV IVPUSH SCH (08:04)
[2021-11-21] MEDS: levETIRAcetam 500 MG Tab PO SCH ×2 (08:05→20:44)
[2021-11-21] MEDS: Gabapentin 300 MG Cap PO SCH ×2 (08:06→20:47)
[2021-11-21] MEDS: Formoterol/Mometasone 100-5 MCG 8.8 GM Inhaler IH SCH ×2 (08:28→20:25)
[2021-11-21] MEDS ORDERED: Potassium Phosphates 15 MMOLE in Sodium Chloride 0.9% 250 ML IV SCH (13:15)
[2021-11-21] MEDS ORDERED: Lactated Ringers 1,000 ML IV SCH (13:15)
[2021-11-21] MEDS ORDERED: Phosphorus #1 250 MG Tab PO ONE (13:39)
[2021-11-21] MEDS: Potassium Chloride 20 MEQ Tab.ER PO SCH ×3 (13:52→17:27)
[2021-11-21] MEDS: Loperamide 2 MG Cap PO PRN ×2 (18:54→23:40)
[2021-11-21] MEDS: Albuterol/Ipratropium 3.0-0.5 MG/3 ML Neb Soln NEB PRN (20:25)
[2021-11-21] MEDS: Lisinopril 20 MG Tab PO SCH (20:45)
[2021-11-21] MEDS: Temazepam 30 MG Cap PO SCH (20:46)
[2021-11-21] MEDS: Propranolol 40 MG Tab PO SCH (20:47)
[2021-11-21] MEDS: Mirtazapine 15 MG Tab PO SCH (20:48)
[2021-11-22] MEDS: Ampicillin/Sulbactam Na 3 GM in Sodium Chloride 0.9% 100 ML IV SCH ×4 (05:00→23:48)
[2021-11-22] MEDS: Albuterol/Ipratropium 3.0-0.5 MG/3 ML Neb Soln NEB PRN (05:05)
[2021-11-22] MEDS: Insulin Lispro 100 Unit/ML 3 ML KwikPen SUBCUT SCH ×4 (06:25→23:05)
[2021-11-22] MEDS ORDERED: Magnesium Sulfate/Water 2 GM in Premix Bag 1 BAG IV ONE (09:00)
[2021-11-22] MEDS: Formoterol/Mometasone 100-5 MCG 8.8 GM Inhaler IH SCH ×2 (09:06→20:16)
[2021-11-22] MEDS: Gabapentin 300 MG Cap PO SCH ×2 (09:22→22:00)
[2021-11-22] MEDS: ARIPiprazole 10 MG Tab PO SCH (09:22)
[2021-11-22] MEDS: levETIRAcetam 500 MG Tab PO SCH ×2 (09:22→22:00)
[2021-11-22] MEDS: Nicotine 21 MG/24 Hr Patch TRDERM SCH (09:23)
[2021-11-22] MEDS: methylPREDNISolone Sodium Succinate 40 MG/1 ML SDV IVPUSH SCH ×2 (09:23→22:00)
[2021-11-22] MEDS: Enoxaparin 40 MG/0.4 ML Syringe SUBCUT SCH (09:23)
[2021-11-22] MEDS: Potassium Chloride 20 MEQ Tab.ER PO SCH ×3 (09:23→16:30)
[2021-11-22] MEDS: Biotin/Folic Acid/Vitamin C/Vitamin B Complex Tab PO SCH (09:23)
[2021-11-22] MEDS: Pantoprazole 40 MG Tab.CR PO SCH (16:30)
[2021-11-22] MEDS ORDERED: Melatonin 3 MG Tab PO PRN (21:00)
[2021-11-22] MEDS: Temazepam 30 MG Cap PO SCH (22:00)
[2021-11-22] MEDS: Mirtazapine 15 MG Tab PO SCH (22:00)
[2021-11-22] MEDS: Propranolol 40 MG Tab PO SCH (22:00)
[2021-11-22] MEDS: Lisinopril 20 MG Tab PO SCH (22:00)
[2021-11-23] MEDS: Ampicillin/Sulbactam Na 3 GM in Sodium Chloride 0.9% 100 ML IV SCH ×4 (05:30→23:03)
[2021-11-23] MEDS: Pantoprazole 40 MG Tab.CR PO SCH ×2 (06:00→16:15)
[2021-11-23] MEDS: Insulin Lispro 100 Unit/ML 3 ML KwikPen SUBCUT SCH ×4 (07:04→23:15)
[2021-11-23] MEDS: Formoterol/Mometasone 100-5 MCG 8.8 GM Inhaler IH SCH ×2 (08:28→20:07)
[2021-11-23] MEDS ORDERED: Magnesium Sulfate/Water 2 GM in Premix Bag 1 BAG IV ONE (09:00)
[2021-11-23] MEDS ORDERED: amLODIPine 2.5 MG Tab PO SCH (09:00)
[2021-11-23] MEDS ORDERED: Non-Formulary Medication 1 Each (Budesonide/Formoterol Fumarate 10.2 GM Hfa.Aer.Ad) INH SCH (09:00)
[2021-11-23] MEDS ORDERED: Albuterol 6.7 GM Inhaler INH PRN (09:04)
[2021-11-23] MEDS: Biotin/Folic Acid/Vitamin C/Vitamin B Complex Tab PO SCH (09:28)
[2021-11-23] MEDS: Metoprolol Tartrate 25 MG Tab PO SCH ×2 (09:29→21:06)
[2021-11-23] MEDS: Gabapentin 300 MG Cap PO SCH ×2 (09:29→21:05)
[2021-11-23] MEDS: ARIPiprazole 10 MG Tab PO SCH (09:29)
[2021-11-23] MEDS: Enoxaparin 40 MG/0.4 ML Syringe SUBCUT SCH (09:31)
[2021-11-23] MEDS: Nicotine 21 MG/24 Hr Patch TRDERM SCH (09:32)
[2021-11-23] MEDS: methylPREDNISolone Sodium Succinate 40 MG/1 ML SDV IVPUSH SCH (09:33)
[2021-11-23] MEDS: levETIRAcetam 500 MG Tab PO SCH ×2 (09:34→21:05)
[2021-11-23] MEDS: Sucralfate 1 GM Tab PO SCH ×2 (11:34→18:07)
[2021-11-23] MEDS ORDERED: amLODIPine 2.5 MG Tab PO ONE (13:45)
[2021-11-23] MEDS ORDERED: LORazepam 2 MG/ML SDV IVPUSH PRN (13:52)
[2021-11-23] MEDS: Albuterol/Ipratropium 3.0-0.5 MG/3 ML Neb Soln NEB PRN (20:07)
[2021-11-23] MEDS ORDERED: Simvastatin 20 MG Tab PO SCH (21:00)
[2021-11-23] MEDS ORDERED: Prazosin 1 MG Cap PO SCH (21:00)
[2021-11-23] MEDS: Temazepam 30 MG Cap PO SCH (21:07)
[2021-11-23] MEDS: Lisinopril 20 MG Tab PO SCH (21:07)
[2021-11-23] MEDS: Mirtazapine 15 MG Tab PO SCH (21:07)
[2021-11-24] MEDS: Ampicillin/Sulbactam Na 3 GM in Sodium Chloride 0.9% 100 ML IV SCH ×2 (05:10→11:59)
[2021-11-24] MEDS: Pantoprazole 40 MG Tab.CR PO SCH (05:19)
[2021-11-24] MEDS: Sucralfate 1 GM Tab PO SCH ×2 (06:13→11:59)
[2021-11-24] MEDS: Formoterol/Mometasone 100-5 MCG 8.8 GM Inhaler IH SCH (08:05)
[2021-11-24] MEDS ORDERED: Magnesium Sulfate/Water 2 GM in Premix Bag 1 BAG IV ONE (09:00)
[2021-11-24] MEDS ORDERED: methylPREDNISolone Sodium Succinate 40 MG/1 ML SDV IVPUSH SCH (09:00)
[2021-11-24] MEDS ORDERED: amLODIPine 5 MG Tab PO SCH (09:00)
[2021-11-24] MEDS: ARIPiprazole 10 MG Tab PO SCH (09:11)
[2021-11-24] MEDS: Enoxaparin 40 MG/0.4 ML Syringe SUBCUT SCH (09:11)
[2021-11-24] MEDS: Gabapentin 300 MG Cap PO SCH (09:11)
[2021-11-24] MEDS: Metoprolol Tartrate 25 MG Tab PO SCH (09:12)
[2021-11-24] MEDS: Nicotine 21 MG/24 Hr Patch TRDERM SCH (09:14)
[2021-11-24] MEDS: levETIRAcetam 500 MG Tab PO SCH (09:14)
[2021-11-24] MEDS: Biotin/Folic Acid/Vitamin C/Vitamin B Complex Tab PO SCH (09:14)
[2021-11-24] MEDS: Insulin Lispro 100 Unit/ML 3 ML KwikPen SUBCUT SCH ×2 (09:24→11:52)
== END 2021-11-24 14:00 | disposition home or self-care (01) | DRG 917 ==
LOC: JD.ED 12:34 → JD.ICU 17:45 → INTOOBSV 17:45 → OBSVTOIN 21:05
PROVIDERS: ADMIT Family Medicine; ATTEND Family Medicine
DX: J18.9 Pneumonia, unspecified organism (principal); R44.0 Auditory hallucinations; R09.02 Hypoxemia; N28.9 Disorder of kidney and ureter, unspecified; H54.7 Unspecified visual loss; T40.601A Poisoning by unspecified narcotics, accidental (unintentional), initial encounter; I10 Essential (primary) hypertension; J44.0 Chronic obstructive pulmonary disease with (acute) lower respiratory infection; G40.909 Epilepsy, unspecified, not intractable, without status epilepticus; J69.0 Pneumonitis due to inhalation of food and vomit; A40.8 Other streptococcal sepsis; Z88.8 Allergy status to other drugs, medicaments and biological substances; M62.82 Rhabdomyolysis; Z86.73 Personal history of transient ischemic attack (TIA), and cerebral infarction without residual deficits; N17.9 Acute kidney failure, unspecified; K92.2 Gastrointestinal hemorrhage, unspecified; F13.239 Sedative, hypnotic or anxiolytic dependence with withdrawal, unspecified; J43.9 Emphysema, unspecified; E87.8 Other disorders of electrolyte and fluid balance, not elsewhere classified; I50.9 Heart failure, unspecified; Z20.822 Contact with and (suspected) exposure to COVID-19; T42.4X1A Poisoning by benzodiazepines, accidental (unintentional), initial encounter; E78.00 Pure hypercholesterolemia, unspecified; F17.210 Nicotine dependence, cigarettes, uncomplicated; I11.0 Hypertensive heart disease with heart failure; F31.9 Bipolar disorder, unspecified; F43.10 Post-traumatic stress disorder, unspecified; R56.9 Unspecified convulsions; F12.23 Cannabis dependence with withdrawal; Z79.899 Other long term (current) drug therapy
CPT/HCPCS: 36415; 36600; 70450; 71045; 80053 ×2; 80306; 81001; 82550; 82803; 82947; 83605; 83735; 83880; 84100; 84145; 84484; 85025 ×2; 85379; 85730; 86140; 87040; 87077; 87154; 87186; 93005 ×2; 94640; 96365; 96367; 96368; 96375; 96376; 99285; J0696; J1644 ×2; J1940; J2310 ×2; J2543; J2920; J2930; J3480; J7120 ×3; U0002; 71275; 71275-26; 82272; 83036; 84443; 85027; 87522; 90694; 93306; 93970; 93970-26; 94660; 94667; 94668; 97110-GP; 97112-GP; 97116-GP; 97162-GP; 97530-GP; A9270-GY; G0008; J0295; J0360; J1650; J1815; J2020; J2060; J3470; J3475; J3490; J7040; J7121; J7620-GY; Q9967

== ENCOUNTER 2021-12-08 05:36 | Emergency (ER) | payer MEDICARE, OTHER ==
[2021-12-08] MEDS ORDERED: Cephalexin 500 MG Cap PO ONE (09:31)
== END 2021-12-08 10:40 | disposition home or self-care (01) ==
LOC: JD.ED 05:36
DX: S40.011A Contusion of right shoulder, initial encounter (principal); S80.01XA Contusion of right knee, initial encounter; S00.81XA Abrasion of other part of head, initial encounter; E78.00 Pure hypercholesterolemia, unspecified; I10 Essential (primary) hypertension; J44.9 Chronic obstructive pulmonary disease, unspecified; R56.9 Unspecified convulsions; Z87.891 Personal history of nicotine dependence; Z88.8 Allergy status to other drugs, medicaments and biological substances; Z79.899 Other long term (current) drug therapy; W19.XXXA Unspecified fall, initial encounter; Y92.59 Other trade areas as the place of occurrence of the external cause
CPT/HCPCS: 70450; 70450-26; 70486; 70486-26; 73030-26-RT; 73030-RT; 82947; 99284-25; A9270-GY

== ENCOUNTER 2022-02-10 10:16 | Observation (INO) | payer MEDICARE, OTHER ==
[2022-02-10] MEDS ORDERED: Morphine 2 MG/ML SYRINGE IVPUSH ONE ×2 (10:57→12:28)
[2022-02-10] MEDS ORDERED: Lactated Ringers 1,000 ML IV SCH (11:30)
[2022-02-10] MEDS ORDERED: Potassium Chloride 20 MEQ Tab.ER PO ONE (11:40)
[2022-02-10] MEDS ORDERED: Bacitracin Oint 15 GM Tube ONE (13:04)
[2022-02-10] MEDS ORDERED: Diphtheria,Pertussis(Acell),Tetanus Vaccine 0.5 ML Syringe IM ONE (13:21)
[2022-02-10] MEDS ORDERED: Bacitracin Oint 15 GM Tube TOP ONE (13:23)
[2022-02-10] MEDS ORDERED: Albuterol 6.7 GM Inhaler INH PRN (15:40)
[2022-02-10] MEDS ORDERED: Ibuprofen 600 MG Tab PO PRN (15:40)
[2022-02-10] MEDS ORDERED: Cyclobenzaprine 10 MG Tab PO PRN (15:40)
[2022-02-10] MEDS: Aluminum Hydroxide/Magnesium Hydroxide/Simethicone Susp 30 ML Cup PO PRN (17:13)
[2022-02-10] MEDS: fentaNYL 100 MCG/2 ML SDV IVPUSH PRN ×3 (17:38→23:12)
[2022-02-10] MEDS: levETIRAcetam 500 MG Tab PO SCH (20:02)
[2022-02-10] MEDS: Gabapentin 300 MG Cap PO SCH (20:03)
[2022-02-10] MEDS: Bacitracin Oint 15 GM Tube TOP SCH (20:04)
[2022-02-10] MEDS: Acetaminophen 325 MG Tab PO PRN (20:13)
[2022-02-10] MEDS: Formoterol/Mometasone 100-5 MCG 8.8 GM Inhaler IH SCH (20:31)
[2022-02-10] MEDS ORDERED: Prazosin 1 MG Cap PO SCH (21:00)
[2022-02-10] MEDS ORDERED: Simvastatin 20 MG Tab PO SCH (21:00)
[2022-02-10] MEDS ORDERED: Temazepam 30 MG Cap PO SCH (21:00)
[2022-02-10] MEDS ORDERED: Mirtazapine 15 MG Tab PO SCH (21:00)
[2022-02-10] MEDS ORDERED: Propranolol 40 MG Tab PO SCH (21:00)
[2022-02-11] MEDS: fentaNYL 100 MCG/2 ML SDV IVPUSH PRN ×3 (00:43→08:28)
[2022-02-11] MEDS: Acetaminophen 325 MG Tab PO PRN (03:57)
[2022-02-11] MEDS: Aluminum Hydroxide/Magnesium Hydroxide/Simethicone Susp 30 ML Cup PO PRN (08:16)
[2022-02-11] MEDS: levETIRAcetam 500 MG Tab PO SCH (08:20)
[2022-02-11] MEDS: Gabapentin 300 MG Cap PO SCH (08:21)
[2022-02-11] MEDS: Bacitracin Oint 15 GM Tube TOP SCH (08:21)
[2022-02-11] MEDS ORDERED: oxyCODONE 5 MG Tab PO PRN (08:49)
[2022-02-11] MEDS: Formoterol/Mometasone 100-5 MCG 8.8 GM Inhaler IH SCH (08:55)
[2022-02-11] MEDS ORDERED: Hydrochlorothiazide 25 MG Tab PO SCH (09:00)
[2022-02-11] MEDS ORDERED: Lisinopril 20 MG Tab PO SCH (09:00)
[2022-02-11] MEDS ORDERED: ARIPiprazole 10 MG Tab PO SCH (09:00)
[2022-02-11] MEDS ORDERED: PARoxetine 20 MG Tab PO SCH (09:00)
[2022-02-11] MEDS ORDERED: Pravastatin 20 MG Tab PO SCH (21:00)
== END 2022-02-11 13:44 | disposition home or self-care (01) ==
LOC: JD.ED 10:16 → JD.MS 13:57
PROVIDERS: ADMIT Surgery; ATTEND Surgery
DX: T20.30XA Burn of third degree of head, face, and neck, unspecified site, initial encounter (principal); T31.0 Burns involving less than 10% of body surface; J44.9 Chronic obstructive pulmonary disease, unspecified; E78.00 Pure hypercholesterolemia, unspecified; I10 Essential (primary) hypertension; F32.A Depression, unspecified; F17.210 Nicotine dependence, cigarettes, uncomplicated; Z20.822 Contact with and (suspected) exposure to COVID-19; Z99.81 Dependence on supplemental oxygen; Z88.8 Allergy status to other drugs, medicaments and biological substances; Z79.899 Other long term (current) drug therapy; Z98.890 Other specified postprocedural states; X08.8XXA Exposure to other specified smoke, fire and flames, initial encounter
CPT/HCPCS: 36415; 36600; 71045; 71045-26; 80053; 80307; 82375; 82803; 84484; 85025; 85610; 85730; 90715; 93005; 94640; 94760; 96374; 96376; 99285-25; A9270-GY; J2270; J3010; J7120; Q3014; U0002

== ENCOUNTER 2023-10-16 09:15 | Day surgery (SDC) | payer MEDICARE, OTHER ==
[2023-10-16] MEDS: Polymyxin B/Trimethoprim 10 ML Bottle EYELF SCH ×4 (10:01→11:53)
[2023-10-16] MEDS: Brimonidine 0.2% Ophth Soln 5 ML Bottle EYELF SCH ×4 (10:04→11:53)
[2023-10-16] MEDS: Phenylephrine 2.5% Ophth Soln 2 ML Bot EYELF SCH ×6 (10:08→11:28)
[2023-10-16] MEDS: Tropicamide 1% Ophth Soln 3 ML Bottle EYELF SCH ×4 (10:11→10:36)
[2023-10-16] MEDS: Cefuroxime 10 MG/ML SYRINGE EYELF SCH ×2 (10:47→11:52)
[2023-10-16] MEDS: Lidocaine 1% PF 2 ML SDV INJECT SCH ×2 (10:47→11:38)
[2023-10-16] MEDS: Proparacaine 0.5% Ophth Soln 15 ML Bottle EYEBOTH SCH ×5 (10:47→11:38)
[2023-10-16] MEDS: Pilocarpine 4% Ophth Soln 15 ML Bot EYELF SCH ×2 (10:48→11:53)
== END 2023-10-16 12:00 | disposition home or self-care (01) ==
LOC: JD.SDS 09:15
PROVIDERS: ATTEND Ophthalmology
DX: H25.812 Combined forms of age-related cataract, left eye (principal); H40.013 Open angle with borderline findings, low risk, bilateral; H18.413 Arcus senilis, bilateral; H16.103 Unspecified superficial keratitis, bilateral; H16.223 Keratoconjunctivitis sicca, not specified as Sjogren's, bilateral; H02.831 Dermatochalasis of right upper eyelid; H02.834 Dermatochalasis of left upper eyelid; I10 Essential (primary) hypertension; E78.00 Pure hypercholesterolemia, unspecified; Z87.891 Personal history of nicotine dependence; Z88.8 Allergy status to other drugs, medicaments and biological substances
CPT/HCPCS: A9270-GY; J0697; J3490; V2632

== ENCOUNTER 2023-11-23 12:22 | Day surgery (SDC) | payer OTHER, MEDICARE ==
[~2023-11-23 12:22] MED LIST: Cefuroxime 10 MG/ML SYRINGE EYERT SCH; Lidocaine 1% PF 2 ML SDV INJECT SCH; Pilocarpine 4% Ophth Soln 15 ML Bot EYERT SCH
[2023-11-23] MEDS: Polymyxin B/Trimethoprim 10 ML Bottle EYERT SCH ×3 (12:34→14:28)
[2023-11-23] MEDS: Brimonidine 0.2% Ophth Soln 5 ML Bottle EYERT SCH ×3 (12:39→14:28)
[2023-11-23] MEDS: Phenylephrine 2.5% Ophth Soln 2 ML Bot EYERT SCH ×6 (12:44→14:11)
[2023-11-23] MEDS: Tropicamide 1% Ophth Soln 3 ML Bottle EYERT SCH ×3 (12:53→13:42)
[2023-11-23] MEDS: Tetracaine HCl/PF 0.5% 4 ML Bottle EYEBOTH SCH ×4 (13:47→14:18)
== END 2023-11-23 14:40 ==
LOC: JD.SDS 12:22
PROVIDERS: ATTEND Ophthalmology
DX: H25.811 Combined forms of age-related cataract, right eye (principal); I10 Essential (primary) hypertension; E78.2 Mixed hyperlipidemia; J44.9 Chronic obstructive pulmonary disease, unspecified; K21.9 Gastro-esophageal reflux disease without esophagitis; F31.9 Bipolar disorder, unspecified; Z96.1 Presence of intraocular lens; Z87.891 Personal history of nicotine dependence; Z79.899 Other long term (current) drug therapy; Z88.8 Allergy status to other drugs, medicaments and biological substances
CPT/HCPCS: 66984; A9270; J0697; J3490; V2632